=== PATIENT | male | born 1965 | race Caucasian/White ===

== ENCOUNTER 2017-06-27 22:11 | Emergency (ER) | payer OTHER ==
[2017-06-27] MEDS ORDERED: Lactated Ringer's 1,000 ML ONE (23:05)
[2017-06-27] MEDS ORDERED: DiphenhydrAMINE 50 mg/ml Inj ONE (23:05)
[2017-06-27] MEDS ORDERED: Lactated Ringer's 1,000 ML IV STA (23:57)
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
[2017-06-28] MEDS ORDERED: Sodium Chloride 0.9% 0 ML ONE (00:24)
[2017-06-28] MEDS ORDERED: Lactated Ringer's 0 ML ONE (00:26)
[2017-06-28 00:34] LABS: BASO % 0.5 % (0.0-2.0); EOS # 0.1 K/uL (0.0-0.7); EOS % 0.8 % (0.0-4.0); HEMOGLOBIN 17.7 g/dL (12.0-18.0); LYMPH # 2.2 K/uL (1.0-4.3); LYMPH % 29.9 % (20.0-40.0); MEAN CELL VOLUME 91.9 fL (80.0-94.0); MEAN CORPUSCULAR HEMOGLOBIN 32.1 pg (27.0-31.0); MEAN CORPUSCULAR HGB CONC 34.9 g/dL (33.0-37.0); MEAN PLATELET VOLUME 7.7 fL (7.2-11.7); MONO # 0.3 K/uL (0.0-0.8); MONO % 3.6 % (0.0-10.0); NEUT # 4.9 K/uL (1.8-7.0); NEUT % 65.2 % (50.0-75.0); RBC 5.53 Mil/uL (4.40-5.90); RED CELL DISTRIBUTION WIDTH 13.1 % (11.5-14.5); WHITE BLOOD COUNT 7.5 K/uL (4.8-10.8)
[2017-06-28 00:52] LABS: ALB/GLOB RATIO 1.2 (1.0-2.1); ALBUMIN 4.9 g/dL (3.5-5.0); ALT/SGPT 26 U/L (21-72); AST/SGOT 32 U/L (17-59); BLOOD UREA NITROGEN 14 mg/dL (9-20); CALCIUM 9.4 mg/dl (8.6-10.4); GFR AFRICAN-AMERICAN > 60; GFR NON-AFRICAN AMERICAN > 60
[2017-06-28] MEDS ORDERED: Midazolam 5 MG/5 ML VIAL IM STA (02:13)
[2017-06-28] MEDS ORDERED: DiphenhydrAMINE 50 mg/ml Inj IM STA (02:14)
[2017-06-28] MEDS ORDERED: DiphenhydrAMINE 50 mg/ml Inj ONE (02:20)
[2017-06-28] MEDS ORDERED: Midazolam 2 MG/2 ML VIAL ONE (02:21)
[2017-06-28 05:15] VITALS: BP 117/77; PULSE 68; RESP 18; TEMP 97.4; O2SAT 99
== END 2017-06-28 05:22 | disposition home or self-care (01) ==
LOC: C.ER 22:11
DX: F10.129 Alcohol abuse with intoxication, unspecified (principal); Y90.7 Blood alcohol level of 200-239 mg/100 ml
CPT/HCPCS: 80053; 80320; 82948; 85025; 96372; 99285; J1200; J1630; J2250